=== PATIENT | male | born 1990 | race Hispanic/Latino ===

== ENCOUNTER 2016-11-22 08:29 | Emergency (ER) | payer OTHER ==
[2016-11-22 08:44] VITALS: RESP 16
[2016-11-22] MEDS ORDERED: TDAP Vaccine 0.5 mL Syr IM ONE (08:48)
--- NOTE | 2016-11-22 08:50 | ED PDOC ---
Arrival/HPI - General Chief Complaint: Lower Extremity Problem/Injury Time Seen by Provider: 11/22/16 08:46 Historian: Patient - History of Present Illness Narrative History of Present Illness (Text): 11/22/16 08:47 Spike Alvarado is a 26 year old male complaining of a small cut to his right thigh which happened this morning. Patient states that he cut himself on a piece of glass. Patient has no other injuries or complaints. Time/Duration: 1-3 hours Symptom Course: Unchanged Activities at Onset: Light Context: Home Past Medical History - Provider Review Nursing Documentation Reviewed: Yes - Infectious Disease Hx of Infectious Diseases: None - Psychiatric Hx Substance Use: No - Surgical History Other/Comment: b/l foot surgery as a child Family/Social History - Physician Review Nursing Documentation Reviewed: Yes Family/Social History: No Known Family HX Smoking Status: Light Smoker < 10 Cigarettes Daily Hx Alcohol Use: Yes Frequency of alcohol use: Socially Hx Substance Use: No Allergies/Home Meds Allergies/Adverse Reactions: Allergies No Known Allergies Allergy (Verified 11/22/16 08:44) Home Medications: Home Meds Medication Instructions Recorded Confirmed No Known Home Med 11/22/16 11/22/16 Physical Exam - Physical Exam Narrative Physical Exam (Text): - Review of Systems Constitutional: Normal. absent: Fatigue, Weight Change, Fevers Eyes: Normal ENT: Normal Respiratory: Normal absent: SOB, Cough, Sputum Cardiovascular: Normal absent: Chest pain, Palpitations, Syncope Gastrointestinal: Normal absent: Abdominal pain, Diarrhea, Nausea, Vomiting Genitourinary: Normal. absent: Dysuria, Frequency, Hematuria Musculoskeletal: Normal. absent: Arthralgias, Back Pain, Neck Pain Skin: Small cut to right thigh. Neurological: Normal absent: Focal Weakness Endocrine: Normal Hemo/Lymphatic: Normal Psychiatric: Normal - Physical exam Patient appears age appropriate, speaking full sentences without difficulty - Systems Exam Lower Extremity: No: Edema Neurological: No focal neurological deficits. Skin: Vertical 1.5 cm laceration to right thigh, approximately 2 mm deep. No active bleeding. Distal neurovascular fully intact. Psychiatric: Present: Alert, Oriented x 3, Normal Insight, Normal Concentration Vital Signs Reviewed: Yes Vital Signs Temp Pulse Resp BP Pulse Ox 11/22/16 08:42 98 F 81 16 130/76 97 Temperature: Afebrile Blood Pressure: Normal Pulse: Regular Respiratory Rate: Normal Appearance: Positive for: Well-Appearing, Non-Toxic, Comfortable Pain Distress: None Mental Status: Positive for: Alert and Oriented X 3 Medical Decision Making ED Course and Treatment: Impression: 26 year old male complaining of a small cut to right thigh. Differential Diagnosis included but are not limited to: Laceration Plan: -- Laceration Repair -- TDAP Vaccine -- Discharge Progress Notes: PROCEDURE: LACERATION REPAIR Performed by the emergency provider Location: Right thigh, vertical Length: 1.5 cm, 2mm deep. Description:Wound explored, no foreign bodies. Distal CMS: Normal. No deficits. Neurovascularly intact. Anesthesia: Lidocaine 1% Preparation: The wound was cleaned with 1L NS. Exploration: The wound was explored and no foreign bodies were found. Procedure: The wound thoroughly irrigated and was closed with Dermabond. Well approximated. Steristrips applied Post-Procedure: Good closure and hemostasis. The patient tolerated the procedure well and there were no complications. CSM remains intact. Post procedure dressing applied. Pt states he understands to return to the ER right away for new or worsening symptoms or for inability to f/u with PMD or specialist as instructed. Patient states that he fully agrees with and understands discharge instructions. States that he agrees with the plan and disposition. Verbalized and repeated discharge instructions and plan. I have given the patient opportunity to ask any additional questions. - Medication Orders Current Medication Orders: Discontinued Medications Tetanus/Reduced Diphtheria/Acell Pertussis (Boostrix Vaccine Inj) 0.5 ml IM .ONCE ONE Stop: 11/22/16 08:49 Last Admin: 11/22/16 09:07 Dose: 0.5 ml - Scribe Statement The provider has reviewed the documentation as recorded by the Bobbi Quezada Provider Scribe Attestation: All medical record entries made by the Hermanibzana were at my direction and personally dictated by me. I have reviewed the chart and agree that the record accurately reflects my personal performance of the history, physical exam, medical decision making, and the department course for this patient. I have also personally directed, reviewed, and agree with the discharge instructions and disposition. Disposition/Present on Arrival - Present on Arrival Any Indicators Present on Arrival: No History of DVT/PE: No History of Uncontrolled Diabetes: No Urinary Catheter: No History of Decub. Ulcer: No History Surgical Site Infection Following: None - Disposition Have Diagnosis and Disposition been Completed?: Yes Diagnosis: Laceration Disposition: HOME/ ROUTINE Disposition Time: 09:41 Patient Plan: Discharge Condition: GOOD Discharge Instructions (ExitCare): Laceration (ED), Skin Adhesive Care (ED) Additional Instructions: PLEASE RETURN TO THE EMERGENCY DEPARTMENT FOR NEW OR WORSENING SYMPTOMS. RETURN RIGHT AWAY IF YOU CANNOT FOLLOW UP WITH YOUR PRIMARY CARE DOCTOR, CLINIC, OR SPECIALIST IN 1-2 DAYS. Referrals: PCP,NO [Primary Care Provider] - Follow up with primary Alesia Polanco MD [Staff Provider] - Follow up with primary Forms: [facility] [employer] (Welsh), WORK NOTE
[2016-11-22 10:19] VITALS: BP 126/80; PULSE 68; TEMP 97.6; O2SAT 98
== END 2016-11-22 10:19 | disposition home or self-care (01) ==
LOC: ED 08:29
DX: S71.111A Laceration without foreign body, right thigh, initial encounter (principal); W25.XXXA Contact with sharp glass, initial encounter; Z23 Encounter for immunization